=== PATIENT | male | born 1945 ===

== ENCOUNTER 2024-12-19 10:15 | Inpatient (IN) | payer OTHER ==
[~2024-12-19] VITALS: Ht 177.8 cm; Wt 62.1 kg
[2024-12-19 11:16] VITALS: BP 84/52
[2024-12-19 11:20] VITALS: BP 135/66
[2024-12-19] MEDS ORDERED: CARDURA1 MG (11:21)
[2024-12-19] MEDS ORDERED: TOPROL XL25 M1 PO (11:21)
[2024-12-19] MEDS ORDERED: LOTREL 5-20 MG1 CAP PO (11:21)
[2024-12-19] MEDS ORDERED: LIPITOR20 MG (11:22)
[2024-12-19] MEDS ORDERED: ASA81 MG PO (11:22)
[2024-12-19] MEDS ORDERED: CLORAZEPATE D3.75 MG PO (11:23)
[2024-12-19] MEDS ORDERED: BACLOFEN20 MG PO (11:23)
[2024-12-19] MEDS ORDERED: PERIDEX473 ML (11:24)
[2024-12-19] MEDS ORDERED: GRALISE600 MG (11:24)
[2024-12-19] MEDS ORDERED: MAXIMUM D3325 MCG PO (11:25)
[2024-12-19] MEDS ORDERED: NEURIN S/L (11:26)
[2024-12-19 11:31] LABS: INR 0.97; PARTIAL THROMBOPLASTIN TIME 29.8 SECONDS (22.0-34.0); PROTHROMBIN TIME 10.6 SECONDS (9.0-11.5)
[2024-12-19 12:26] LABS: RH POSITIVE
[2024-12-26] MEDS ORDERED: CEFAZOLIN SODIUM 1,000 MG VIAL ONE ×2 (13:06→21:34)
[2024-12-26] MEDS ORDERED: ENOXAPARIN SODIUM 40 MG/0.4 ML SYRINGE SUBCUTANEO ONE (15:01)
[2024-12-26] MEDS ORDERED: LIDOCAINE HCL 1%/EPINEPHRINE 20ML VIAL IJ ONE (15:03)
[2024-12-26] MEDS ORDERED: BUPIVACAINE HCL/MPF 0.5% 30ML VIAL ONE (15:03)
[2024-12-26] MEDS ORDERED: SURGIFLO APPLICATOR 1 EACH APPL TOP ONE (15:53)
[2024-12-26] MEDS ORDERED: HEMOSTATIC MATRIX WITH THROMBIN KIT TOP ONE (15:53)
[2024-12-26] MEDS ORDERED: THROMBIN,HU/FIBRINOGEN/CALCIUM 10 ML SYRINGE TOP ONE (17:43)
[2024-12-26] MEDS ORDERED: ONDANSETRON HCL 2 MG/ML VIAL IV PRN (18:15)
[2024-12-26] MEDS ORDERED: RINGERS SOLUTION,LACTATED 1,000 ML IV SCH (18:15)
[2024-12-26] MEDS ORDERED: OxyCODONE HCL/APAP UD (PERCOCET) PO PRN (18:15)
[2024-12-26] MEDS ORDERED: MORPHINE SULFATE 2 MG/ML CARTRIDGE IV ONE (20:45)
[2024-12-26] MEDS ORDERED: ONDANSETRON HCL 2 MG/ML VIAL ONE (20:47)
[2024-12-26] MEDS ORDERED: FAMOTIDINE/PF 20 MG/2 ML VIAL IV SCH (21:00)
[2024-12-26] MEDS ORDERED: CEFAZOLIN SODIUM 1,000 MG VIAL IV SCH (21:00)
[2024-12-26] MEDS ORDERED: FAMOTIDINE/PF 20 MG/2 ML VIAL ONE (21:34)
[2024-12-26 22:20] VITALS: BP 84/52; O2SAT 94
[2024-12-27] VITALS (29 sets, daily range): BP systolic 56–747; BP diastolic 40–67; O2SAT 90–100
[2024-12-27] MEDS ORDERED: GABAPENTIN 300 MG CAPSULE PO SCH (01:00)
[2024-12-27 07:04] LABS: MEAN CELL VOLUME 93.4 fL (80.0-100.00); MEAN CORPUSCULAR HGB CONC 34.5 g/dl (32.0-36.0); PLATELET COUNT 213 K/uL (150-450); RED BLOOD COUNT 2.42 M/uL (4.00-6.00); RED CELL DISTRIBUTION WIDTH 13.5 % (11.5-14.5)
[2024-12-27 07:17] LABS: HEMATOCRIT 22.6 % (39.0-48.0); MEAN CORPUSCULAR HEMOGLOBIN 32.2 pg (27.00-32.0)
[2024-12-27 07:46] LABS: ALBUMIN 2.4 gm/dL (3.4-5.0); CALCIUM 8.3 mg/dL (8.5-10.1); CREATININE SERUM 2.27 mg/dL (0.70-1.30); GFR 27.92; PHOSPHOROUS 5.8 mg/dL (2.5-4.9); POTASSIUM 4.32 mEq/L (3.5-5.1)
[2024-12-27 07:56] LABS: HEMOGLOBIN 7.8 g/dL (13-16.00)
[2024-12-27] MEDS ORDERED: METOPROLOL SUCCINATE 25 MG TAB.SR.24H PO SCH (09:00)
[2024-12-27] MEDS ORDERED: DOXAZOSIN MESYLATE 2 MG TABLET PO SCH (09:00)
[2024-12-27] MEDS ORDERED: AMLODIPINE BESYLATE 5 MG TABLET PO SCH (09:00)
[2024-12-27] MEDS ORDERED: ENOXAPARIN SODIUM 40 MG/0.4 ML SYRINGE SUBCUTANEO SCH (09:00)
[2024-12-27] MEDS ORDERED: AMINOCAPROIC ACID 250 MG/ML VIAL IV NR (12:00)
[2024-12-27] MEDS ORDERED: AMINOCAPROIC ACID 1,000 MG in 0.9 % SODIUM CHLORIDE 250 ML IV SCH (13:00)
[2024-12-27] MEDS ORDERED: AMINOCAPROIC ACID 20 MG/ML ML IV SCH (16:00)
[2024-12-27 16:36] LABS: HEMATOCRIT 34.4 % (39.0-48.0); HEMOGLOBIN 11.6 g/dL (13-16.00); MEAN CELL VOLUME 89.2 fL (80.0-100.00); MEAN CORPUSCULAR HEMOGLOBIN 30.1 pg (27.00-32.0); MEAN CORPUSCULAR HGB CONC 33.8 g/dl (32.0-36.0); PLATELET COUNT 141 K/uL (150-450); RED BLOOD COUNT 3.85 M/uL (4.00-6.00); RED CELL DISTRIBUTION WIDTH 14.5 % (11.5-14.5)
[2024-12-27] MEDS ORDERED: POLYETHYLENE GLYCOL 3350 17 GM BLIST.PACK PO SCH (17:00)
[2024-12-27] MEDS ORDERED: 0.9 % SODIUM CHLORIDE 1,000 ML IV SCH (17:45)
[2024-12-27] MEDS ORDERED: LORazepam 0.5 MG TABLET PO PRN (21:00)
[2024-12-27] MEDS ORDERED: LORazepam 2 MG/ML VIAL IV PRN (21:15)
[2024-12-27 21:56] LABS: HEMATOCRIT 36.9 % (39.0-48.0); HEMOGLOBIN 12.6 g/dL (13-16.00); MEAN CELL VOLUME 89.9 fL (80.0-100.00); MEAN CORPUSCULAR HEMOGLOBIN 30.7 pg (27.00-32.0); MEAN CORPUSCULAR HGB CONC 34.1 g/dl (32.0-36.0); RED BLOOD COUNT 4.11 M/uL (4.00-6.00); RED CELL DISTRIBUTION WIDTH 14.7 % (11.5-14.5)
[2024-12-27 22:27] LABS: PLATELET COUNT 114 K/uL (150-450)
[2024-12-27] MEDS ORDERED: DIPHENHYDRAMINE HCL 50 MG/ML VIAL 1ML IV ONE (23:15)
[2024-12-28 00:22] VITALS: BP 158/79; O2SAT 97
[2024-12-28 06:49] LABS: HEMATOCRIT 32.7 % (39.0-48.0); HEMOGLOBIN 11.3 g/dL (13-16.00); MEAN CELL VOLUME 88.3 fL (80.0-100.00); MEAN CORPUSCULAR HEMOGLOBIN 30.6 pg (27.00-32.0); MEAN CORPUSCULAR HGB CONC 34.7 g/dl (32.0-36.0); RED BLOOD COUNT 3.71 M/uL (4.00-6.00); RED CELL DISTRIBUTION WIDTH 14.7 % (11.5-14.5)
[2024-12-28 06:59] LABS: PLATELET COUNT 97 K/uL (150-450)
[2024-12-28 07:13] LABS: ALBUMIN 2.8 gm/dL (3.4-5.0); BILIRUBIN TOTAL 0.94 mg/dL (0.3-1.2); CALCIUM 8.3 mg/dL (8.5-10.1); CREATININE SERUM 2.31 mg/dL (0.70-1.30); GFR 27.36; POTASSIUM 3.84 mEq/L (3.5-5.1); TOTAL PROTEIN 4.8 gm/dL (6.4-8.2)
[2024-12-28] MEDS ORDERED: LORazepam 2 MG/ML VIAL IV NR (07:45)
[2024-12-28 08:10] VITALS: BP 171/70; O2SAT 100
[2024-12-28 11:53] LABS: HEMATOCRIT 33.9 % (39.0-48.0); HEMOGLOBIN 11.5 g/dL (13-16.00); MEAN CELL VOLUME 89.3 fL (80.0-100.00); MEAN CORPUSCULAR HEMOGLOBIN 30.4 pg (27.00-32.0); RED BLOOD COUNT 3.79 M/uL (4.00-6.00)
[2024-12-28 11:54] LABS: PLATELET COUNT 89 K/uL (150-450)
[2024-12-28] MEDS ORDERED: hydrALAZINE HCL 20 MG VIAL IV PRN (15:30)
[2024-12-28 16:39] VITALS: BP 150/73; O2SAT 100
[2024-12-28 16:44] LABS: MANUAL PLATELET COUNT 148
[2024-12-28 16:46] LABS: PLT IN CITRATE 90 K/uL (150-450)
[2024-12-28] MEDS ORDERED: QUETIAPINE FUMARATE 25 MG TABLET PO SCH (17:00)
[2024-12-28 17:25] VITALS: O2SAT 96
[2024-12-28 19:14] LABS: HEMATOCRIT 33.9 % (39.0-48.0); HEMOGLOBIN 11.7 g/dL (13-16.00); MEAN CELL VOLUME 88.7 fL (80.0-100.00); MEAN CORPUSCULAR HEMOGLOBIN 30.7 pg (27.00-32.0); MEAN CORPUSCULAR HGB CONC 34.6 g/dl (32.0-36.0); PLATELET COUNT 90 K/uL (150-450); RED BLOOD COUNT 3.82 M/uL (4.00-6.00)
[2024-12-28 20:52] VITALS: O2SAT 100
[2024-12-29] VITALS (9 sets, daily range): BP systolic 131–142; BP diastolic 62–80; O2SAT 90–99
[2024-12-29 06:30] LABS: HEMATOCRIT 28.3 % (39.0-48.0); MEAN CELL VOLUME 90.5 fL (80.0-100.00); MEAN CORPUSCULAR HEMOGLOBIN 31.3 pg (27.00-32.0); MEAN CORPUSCULAR HGB CONC 34.6 g/dl (32.0-36.0); RED BLOOD COUNT 3.13 M/uL (4.00-6.00); RED CELL DISTRIBUTION WIDTH 14.6 % (11.5-14.5)
[2024-12-29 06:38] LABS: HEMOGLOBIN 9.8 g/dL (13-16.00); PLATELET COUNT 81 K/uL (150-450)
[2024-12-29 07:21] LABS: ALBUMIN 2.4 gm/dL (3.4-5.0); BILIRUBIN TOTAL 0.8 mg/dL (0.3-1.2); CALCIUM 7.6 mg/dL (8.5-10.1); CREATININE SERUM 1.54 mg/dL (0.70-1.30); GFR 43.68; GLOBULINA 2.2 G/DL (2.4-3.5); POTASSIUM 4.34 mEq/L (3.5-5.1); TOTAL PROTEIN 4.6 gm/dL (6.4-8.2)
[2024-12-30] VITALS (9 sets, daily range): BP systolic 124–160; BP diastolic 62–69; O2SAT 90–96
[2024-12-30 14:00] LABS: ALBUMIN 2.6 gm/dL (3.4-5.0); BILIRUBIN TOTAL 1.29 mg/dL (0.3-1.2); CALCIUM 8.3 mg/dL (8.5-10.1); CREATININE SERUM 1.26 mg/dL (0.70-1.30); GFR 55.06; GLOBULINA 2.6 G/DL (2.4-3.5); POTASSIUM 3.83 mEq/L (3.5-5.1); TOTAL PROTEIN 5.2 gm/dL (6.4-8.2)
[2024-12-30] MEDS ORDERED: LORazepam 2 MG/ML VIAL IV STA (23:09)
[2024-12-30] MEDS ORDERED: LORazepam 2 MG/ML VIAL ONE (23:16)
[2024-12-31 00:30] VITALS: BP 144/83; O2SAT 98
[2024-12-31 02:11] VITALS: O2SAT 96
[2024-12-31 08:00] VITALS: BP 137/76; O2SAT 96
[2024-12-31 08:25] LABS: HEMATOCRIT 31.9 % (39.0-48.0); HEMOGLOBIN 10.9 g/dL (13-16.00); MEAN CELL VOLUME 90.9 fL (80.0-100.00); MEAN CORPUSCULAR HEMOGLOBIN 31.1 pg (27.00-32.0); MEAN CORPUSCULAR HGB CONC 34.2 g/dl (32.0-36.0); RED BLOOD COUNT 3.51 M/uL (4.00-6.00); RED CELL DISTRIBUTION WIDTH 14.1 % (11.5-14.5)
[2024-12-31 08:36] LABS: PLATELET COUNT 109 K/uL (150-450)
[2024-12-31 09:02] LABS: CALCIUM 8.8 mg/dL (8.5-10.1); CREATININE SERUM 1.24 mg/dL (0.70-1.30); GFR 56.09; POTASSIUM 4.46 mEq/L (3.5-5.1)
[2024-12-31 09:27] VITALS: O2SAT 97
[2024-12-31] MEDS ORDERED: DEXTROSE 5 %-0.45 % SOD CHLORD 1,000 ML IV SCH (13:21)
[2024-12-31 13:45] VITALS: O2SAT 99
[2024-12-31 16:00] VITALS: BP 144/70; O2SAT 95
[2025-01-01 00:30] VITALS: BP 146/81; O2SAT 99
[2025-01-01 00:38] VITALS: O2SAT 98
[2025-01-01 05:42] VITALS: O2SAT 90; O2SAT 97
[2025-01-01 08:00] VITALS: BP 173/81; O2SAT 98
[2025-01-01 08:26] LABS: ALBUMIN 2.5 gm/dL (3.4-5.0); BILIRUBIN TOTAL 1.66 mg/dL (0.3-1.2); CALCIUM 8.4 mg/dL (8.5-10.1); CREATININE SERUM 1.08 mg/dL (0.70-1.30); GFR 65.78; GLOBULINA 2.4 G/DL (2.4-3.5); POTASSIUM 3.36 mEq/L (3.5-5.1); TOTAL PROTEIN 4.9 gm/dL (6.4-8.2)
[2025-01-01 08:36] LABS: HEMOGLOBIN 10.8 g/dL (13-16.00); MEAN CELL VOLUME 90.6 fL (80.0-100.00); MEAN CORPUSCULAR HEMOGLOBIN 31.5 pg (27.00-32.0); MEAN CORPUSCULAR HGB CONC 34.8 g/dl (32.0-36.0); RED BLOOD COUNT 3.42 M/uL (4.00-6.00); RED CELL DISTRIBUTION WIDTH 13.9 % (11.5-14.5)
[2025-01-01 08:44] LABS: PLATELET COUNT 121 K/uL (150-450)
[2025-01-01 08:55] VITALS: O2SAT 98
[2025-01-01] MEDS ORDERED: POTASSIUM BICARBONATE/CIT AC 25 MEQ TABLET.EFF PO SCH (09:00)
[2025-01-01] MEDS ORDERED: AMINO ACIDS/PROTEIN HYDROLYS 30 ML BLIST.PACK PO SCH (11:08)
[2025-01-01] MEDS ORDERED: QUETIAPINE FUMARATE 25 MG TABLET PO SCH (17:00)
== END 2025-01-01 12:39 | disposition home or self-care (01) | DRG 657 ==
LOC: SURH 12-26 10:15 → O/R 12-26 12:19 → SURG 12-26 12:19 → SURH 12-26 17:00 → SURG 12-26 18:59
PROVIDERS: Internal Medicine; Urology; ADMIT Urology; ATTEND Urology
PROC: 0TT14ZG Resection of Left Kidney, Percutaneous Endoscopic Approach, Hand-Assisted (ICD-10-PCS; principal; 2024-12-26 17:00)
PROC: 4A12X4Z Monitoring of Cardiac Electrical Activity, External Approach (ICD-10-PCS; 2024-12-27)
PROC: 30233N1 Transfusion of Nonautologous Red Blood Cells into Peripheral Vein, Percutaneous Approach (ICD-10-PCS; 2024-12-27)
PROC: BW21ZZZ Computerized Tomography (CT Scan) of Abdomen and Pelvis (ICD-10-PCS; 2024-12-28)
PROC: BW28ZZZ Computerized Tomography (CT Scan) of Head (ICD-10-PCS; 2024-12-31)
DX: C64.2 Malignant neoplasm of left kidney, except renal pelvis (principal); F05 Delirium due to known physiological condition; N17.9 Acute kidney failure, unspecified; N99.840 Postprocedural hematoma of a genitourinary system organ or structure following a genitourinary system procedure; E86.0 Dehydration; I12.9 Hypertensive chronic kidney disease with stage 1 through stage 4 chronic kidney disease, or unspecified chronic kidney disease; N18.9 Chronic kidney disease, unspecified; D64.9 Anemia, unspecified; E78.5 Hyperlipidemia, unspecified; I95.81 Postprocedural hypotension; E87.6 Hypokalemia